=== PATIENT | female | born 1980 | race Caucasian/White ===

== ENCOUNTER 2022-12-23 20:10 | Emergency (ER) | payer BC ==
[2022-12-23 20:19] VITALS: BP 146/83; PULSE 78; RESP 16; TEMP 98.1; BMI 22.6
[2022-12-23 22:11] LABS: EPI CELLS 19 /uL (0-25.1); HYALINE CASTS 0 /uL (0-3.1); URINE APPEARANCE CLEAR; URINE BILIRUBIN 1+ (NEGATIVE); URINE COLOR ORANGE; URINE GLUCOSE (UA) NEGATIVE (NEGATIVE); URINE KETONE NEGATIVE (NEGATIVE); URINE LEUK ESTERASE 2+ (NEGATIVE); URINE NITRITE POSITIVE (NEGATIVE); URINE PROTEIN TRACE (NEGATIVE); URINE RBC 83 /uL (0-23.9); URINE WBC 297 /uL (0-25.8)
[2022-12-23] MEDS ORDERED: CEPHALEXIN MONOHYDRATE 500 MG CAPSULE (UD) PO ONE (22:19)
[2022-12-23] MEDS ORDERED: CEPHALEXIN MONOHYDRATE 500 MG CAPSULE (UD) ONE (22:49)
== END 2022-12-23 22:55 | disposition home or self-care (01) ==
LOC: JER 20:10
DX: R30.0 Dysuria (principal); R35.0 Frequency of micturition; N30.00 Acute cystitis without hematuria
CPT/HCPCS: 81003; 87077; 87086; 99283-25